=== PATIENT | male | born 1975 | race Caucasian/White ===

== ENCOUNTER 2018-02-20 17:30 | Emergency (ER) | payer SELFPAY ==
[~2018-02-20] VITALS: Ht 175.3 cm; Wt 99.8 kg
[2018-02-20 18:23] VITALS: BP 143/83
== END 2018-02-20 19:36 | disposition home or self-care (01) ==
LOC: ER 17:30
DX: M79.671 Pain in right foot (principal); J45.909 Unspecified asthma, uncomplicated
CPT/HCPCS: 73630